=== PATIENT | male | born 1960 | race Asian ===

== ENCOUNTER 2020-07-20 14:22 | Outpatient (RCR) | payer BC, SELFPAY ==
[2020-07-20] MEDS: COVID-19 VACC, MRNA(PFIZER)/PF 30 MCG/0.3 ML SYRINGE IM (10:40)
[2020-08-10] MEDS: COVID-19 VACC, MRNA(PFIZER)/PF 30 MCG/0.3 ML SYRINGE IM (10:23)
== END 2020-07-20 23:59 ==
LOC: IMMUN 14:22
PROVIDERS: Visit Provider Family Medicine
DX: Z23 Encounter for immunization (principal)
CPT/HCPCS: 0001A; 0002A; 91300